=== PATIENT | female | born 1970 | race Caucasian/White ===

== ENCOUNTER 2017-02-07 19:09 | Emergency (ER) | payer OTHER ==
--- NOTE | 2017-02-07 19:24 | EDPHY ---
H & P Time Seen by Provider: 02/07/17 19:16 HPI/ROS: CHIEF COMPLAINT: Right ankle injury HISTORY OF PRESENT ILLNESS: 46-year-old female presents to the emergency department with injury to her right ankle. Patient was hiking [place] and slipped and fell injuring her right ankle. She tried walking on it for a bit but then the pain became too great. The patient had to be brought down the rest of the way by [facility]. Patient did not hit her head or lose consciousness. She denies numbness or tingling in her toes. Denies pain in her right foot, right calf or knee. Denies headache. Denies neck or back pain. Denies injury to the upper extremities. REVIEW OF SYSTEMS: Constitutional: No fever, no chills. Eyes: No double or blurry vision. ENT: No sore throat. Respiratory: No cough, no shortness of breath. Cardiac: No chest pain. Gastrointestinal: No abdominal pain, vomiting or diarrhea. Genitourinary: No dysuria. Musculoskeletal: No neck or back pain. Skin: No rashes. Neurological: No headache. Past Medical/Surgical History: Orthopedic surgery Social History: Smoking Status: Former smoker Physical Exam: General Appearance: Alert, no distress. Mentating normally and answering questions appropriately. No visible signs of trauma to her head. Eyes: Pupils equal and round. Extraocular motions are all intact. ENT: Mouth: Mucous membranes moist. Respiratory: No wheezing, rhonchi, or rales, lungs are clear to auscultation. Cardiovascular: Regular rate and rhythm. Gastrointestinal: Abdomen is soft and nontender, no masses, no rebound or guarding, bowel sounds normal. Neurological: Alert and oriented x 3, cranial nerves II through XII grossly intact Skin: Warm and dry, no rashes. Very superficial abrasion to the lateral aspect of the right ankle overlying distal fibula. Musculoskeletal: Nontender to palpate along the cervical, thoracic or lumbar spine. Neck is supple. Extremities: Obvious swelling noted to the lateral aspect of her right ankle over distal fibula. She has reproducible pain with palpation over the distal fibula. She has limited dorsiflexion secondary to pain. Nontender to palpate to the medial aspect of her right ankle. Achilles tendon is intact. Nontender to palpate the right foot. Right calf is nontender. Right knee is nontender. Full range of motion of her left lower extremity and upper extremities bilaterally. Psychiatric: Patient is oriented X 3, there is no agitation. Constitutional: Initial Vital Signs Temperature (C) 36.9 C 02/07/17 19:11 Heart Rate 76 02/07/17 19:11 Respiratory Rate 18 02/07/17 19:11 Blood Pressure 130/91 H 02/07/17 19:11 O2 Sat (%) 96 02/07/17 19:11 O2 Delivery Mode Room Air Allergies/Adverse Reactions: No Known Allergies Allergy (Unverified 02/07/17 19:15) Home Medications: Medication Instructions Recorded Acyclovir 02/07/17 Medical Decision Making - Diagnostics Imaging Results: Imaging Impressions Ankle X-Ray 02/07/17 19:20 Impression: Avulsion fracture fragment distal to the lateral malleolus, with dorsal-lateral soft tissue swelling and an ankle joint effusion. Imaging: I viewed and interpreted images myself Procedures: Patient was placed in a Salas boot and examined post application in good placement with normal ROOF SLATER. ED Course/Re-evaluation: 46-year-old female presents to the emergency department with injury to her right ankle. X-rays reveal possible avulsion fracture to the off distal phalanx overlying lateral malleolus. The patient was placed in a Salas boot, given crutches and will have close follow-up with the orthopedic surgeon at the [facility]. Differential Diagnosis: Including but not limited to fracture, dislocation, contusion, sprain Departure - Departure Disposition: Home, Routine, Self-Care Clinical Impression: Right ankle sprain Qualifiers: Encounter type: initial encounter Involved ligament of ankle: unspecified ligament Qualified Code(s): S93.401A - Sprain of unspecified ligament of right ankle, initial encounter Avulsion fracture of right ankle Qualifiers: Encounter type: initial encounter Fracture type: closed Qualified Code(s): S82.891A - Other fracture of right lower leg, initial encounter for closed fracture Condition: Good Instructions: Ankle Sprain (ED), Ankle Fracture (ED) Additional Instructions: Salas boot for comfort and support. Weightbear as tolerated or use crutches. Ice and elevate to help relieve pain and swelling. Ibuprofen 600mg every 8 hours for pain as directed. Referrals: Héctor Harris MD [Medical Doctor] - 2-3 days without fail ([facility] orthopedic surgeon)
[2017-02-07 19:25] VITALS: BP 130/91; PULSE 76; RESP 18; TEMP 98.4; O2SAT 96
== END 2017-02-07 19:47 | disposition home or self-care (01) ==
DX: S82.891A Other fracture of right lower leg, initial encounter for closed fracture (principal); S93.401A Sprain of unspecified ligament of right ankle, initial encounter; Z87.891 Personal history of nicotine dependence; W01.0XXA Fall on same level from slipping, tripping and stumbling without subsequent striking against object, initial encounter; Y99.8 Other external cause status; Y93.01 Activity, walking, marching and hiking
CPT/HCPCS: L4386

== ENCOUNTER → 2018-06-30 | Outpatient (CLI) | payer OTHER | LOC: FIMAGING 09:23 | PROVIDERS: ATTEND Family Medicine | DX: M25.761 Osteophyte, right knee (principal); M25.762 Osteophyte, left knee; M25.861 Other specified joint disorders, right knee; M25.862 Other specified joint disorders, left knee ==